=== PATIENT | female | born 1975 | race Caucasian/White ===

== ENCOUNTER 2018-06-08 17:56 | Inpatient (IN) | payer OTHER ==
[~2018-06-08] VITALS: Ht 154.9 cm; Wt 48.6 kg
--- NOTE | ~2018-06-08 | CON ---
[address] [address] CONSULTATION Name: DASHAWN NOLASCO ANGELIA Room: [address] ADM IN M.R.#: [id number] Admission: 06/08/18 Attend Phys: Lazaro Calzada MD Discharge: Date of : 73 Report #: [id number] THIS REPORT FOR: //name// CC: ANGELA physician/PCP Lazaro Calzada DATE OF SERVICE: 06/09/2018 INFECTIOUS DISEASE CONSULTATION REASON FOR CONSULTATION: Dog bite cellulitis, right hand, antibiotic management. HISTORY OF PRESENT ILLNESS: A 42-year-old white woman bitten by 's family dog, developed cellulitic changes, evaluated in the Emergency Room, sutures placed and started on Augmentin; did not get better as soon as she has hoped to. At this urgent care, given cefuroxime and clindamycin, which upset her stomach. She is evaluated at [facility] and admitted. Tolerating clindamycin. The hand is doing better. PAST MEDICAL HISTORY: Depression and surgical menopause. DRUG ALLERGIES: None listed. MEDICATIONS: At home venlafaxine, alprazolam and estrogen. Medications here at the hospital include venlafaxine, clindamycin 600 mg t.i.d., intravenous normal saline, p.r.n. ondansetron, morphine sulfate and enoxaparin subcutaneous. SOCIAL HISTORY: See H and P. FAMILY HISTORY: See H and P. REVIEW OF SYSTEMS: Advanced cellulitis, right hand dog bite, right thumb. Sutures placed in another ER. PHYSICAL EXAMINATION: GENERAL: Well developed, not toxic looking woman, afebrile since admission. VITAL SIGNS: Temperature 98.3, pulse 84, respirations 18 and BP 145/83. HEENT: Normal. NECK: Normal. LUNGS: Clear. HEART: S1, S2. ABDOMEN: Soft. PELVIC AND RECTAL EXAMINATION: [place] [address] CONSULTATION [facility]: [facility] Room: [address] IN [facility].#: [id number] Admission: 06/08/18 Attend Phys: Lazaro Calzada MD Discharge: Date of : 73 Report #: [id number] EXTREMITIES: Right thumb with surgical wound on the proximal aspect. Sutures in place. Minimal erythematous changes, dorsal aspect of the hand. NEUROLOGIC: Grossly within normal limits. LABORATORY DATA: Sodium 140, potassium 3.8, BUN 12 and creatinine 0.9. Albumin 3.9. WBC 7.2, hemoglobin 11 and platelets 287,000. White blood cell count differential, 77% segmented neutrophils. Blood cultures in an afebrile patient were obtained and they remain negative. ASSESSMENT: 1. Dog bite cellulitis, right hand, status post sutures placement. 2. Depression. SUGGESTIONS: Recommend drug of choice that will cover oral anaerobic organisms as well as Pasteurella multocida, Unasyn 3 grams IV every 6 hours. We will make the switch. Dr. Calzada, thank you for requesting my suggestions. By: [id number] Posadas MD /nt
[2018-06-08 18:11] VITALS: BP 140/72
[2018-06-08] MEDS ORDERED: EFFEXOR 5050 MG/1 T1 PO (18:14)
[2018-06-08] MEDS ORDERED: PREMARIN0.45 MG PO (18:15)
[2018-06-08] MEDS ORDERED: XANAX 0.5 MG0.5 MG PO (18:15)
[2018-06-08 18:42] LABS: ABSOLUTE LYMPHOCYTES 1.7 thou/uL (0.8-5.3); ABSOLUTE MONOCYTES 0.3 thou/uL (0.0-1.2); ABSOLUTE NEUTROPHILS 5.3 thou/uL (1.6-8.1); BASOPHILS 0.4 %; HEMATOCRIT 32.9 % (37.0-47.0); LYMPHOCYTES 22.9 %; MCH 30.5 pg (26.0-34.0); MCHC 33.6 g/dL (28.0-37.0); MCV 90.8 fL (80.0-100.0); MPV 7.8 fl. (7.2-11.1); NUCLEATED RBCS 0 /100WBC; PLATELET COUNT* 287 thou/uL (150-400); POLYS 72.7 %; RBC 3.62 mil/uL (4.20-5.00); RDW-CV 12.7 % (10.5-14.5); WBC 7.2 thou/uL (4.0-11.0)
[2018-06-08 18:51] LABS: CALCIUM 9.5 mg/dL (8.5-10.1); CREATININE 0.9 mg/dL (0.6-1.3); POTASSIUM 3.8 mmol/L (3.5-5.1)
[2018-06-08 18:55] LABS: ALBUMIN 3.9 g/dL (3.4-5.0); TOTAL BILIRUBIN 0.2 mg/dL (<0.1-1.0); TOTAL PROTEIN 7.7 g/dL (6.4-8.2)
[2018-06-08 19:44] VITALS: BP 135/72
[2018-06-08 20:00] VITALS: BP 145/83
[2018-06-09 09:00] VITALS: BP 112/53
[2018-06-09 16:00] VITALS: BP 114/75
[2018-06-09 22:00] VITALS: BP 115/75
[2018-06-10 10:00] VITALS: BP 129/88
[2018-06-10 15:55] VITALS: BP 126/89
[2018-06-11] VITALS: BP 126/80
[2018-06-11 04:16] LABS: ABSOLUTE EOSINOPHILS 0.3 thou/uL (0.0-0.7); ABSOLUTE LYMPHOCYTES 2.7 thou/uL (0.8-5.3); ABSOLUTE MONOCYTES 0.5 thou/uL (0.0-1.2); ABSOLUTE NEUTROPHILS 2.1 thou/uL (1.6-8.1); BASOPHILS 0.7 %; EOSINOPHILS 4.7 %; HEMATOCRIT 28.9 % (37.0-47.0); HEMOGLOBIN 9.7 gm/dL (12.0-15.0); LYMPHOCYTES 48.2 %; MCH 30.8 pg (26.0-34.0); MCHC 33.5 g/dL (28.0-37.0); MCV 91.8 fL (80.0-100.0); MONOCYTES 8.3 %; MPV 8.3 fl. (7.2-11.1); NUCLEATED RBCS 0 /100WBC; PLATELET COUNT* 256 thou/uL (150-400); POLYS 38.1 %; RBC 3.15 mil/uL (4.20-5.00); RDW-CV 12.5 % (10.5-14.5); WBC 5.6 thou/uL (4.0-11.0)
[2018-06-11 04:55] LABS: CALCIUM 8.7 mg/dL (8.5-10.1); CREATININE 0.8 mg/dL (0.6-1.3); POTASSIUM 4.1 mmol/L (3.5-5.1)
[2018-06-11 07:30] VITALS: BP 108/68
[2018-06-11] MEDS ORDERED: PRENATAL FORMU1 EAC4 PO (12:28)
[2018-06-11] MEDS ORDERED: AUGMENTIN 875-1 EACH PO (12:29)
[2018-06-11 12:34] VITALS: BP 108/68
[2018-06-11 17:02] VITALS: BP 108/68
== END 2018-06-11 17:04 | disposition home or self-care (01) | DRG 603 ==
LOC: M.ERS 17:56 → M.TBA-ER 18:56 → M.3W 18:56
PROVIDERS: Family Medicine; Nurse Practitioner Family
DX: L03.011 Cellulitis of right finger (principal); S61.051A Open bite of right thumb without damage to nail, initial encounter; F41.9 Anxiety disorder, unspecified; D50.9 Iron deficiency anemia, unspecified; D52.9 Folate deficiency anemia, unspecified; F32.9 Major depressive disorder, single episode, unspecified; W54.0XXA Bitten by dog, initial encounter; Y92.098 Other place in other non-institutional residence as the place of occurrence of the external cause; Y93.89 Activity, other specified; Y99.8 Other external cause status; Z79.899 Other long term (current) drug therapy; Z79.818 Long term (current) use of other agents affecting estrogen receptors and estrogen levels

== ENCOUNTER 2018-06-17 19:01 | Emergency (ER) | payer OTHER ==
[~2018-06-17] VITALS: Ht 154.9 cm; Wt 48.5 kg
[~2018-06-17 19:01] MED LIST: AUGMENTIN 875-1 EACH PO; EFFEXOR 5050 MG/1 T1 PO; PREMARIN0.45 MG PO; PRENATAL FORMU1 EAC4 PO; XANAX 0.5 MG0.5 MG PO
[2018-06-17 19:45] VITALS: BP 122/72
== END 2018-06-17 19:45 | disposition home or self-care (01) ==
LOC: M.ERS 19:01
DX: S61.011D Laceration without foreign body of right thumb without damage to nail, subsequent encounter (principal); F32.9 Major depressive disorder, single episode, unspecified; W54.0XXD Bitten by dog, subsequent encounter